=== PATIENT | male | born 1955 ===

== ENCOUNTER 2018-09-21 07:30 | Emergency (ER) | payer BC, OTHER ==
[~2018-09-21] VITALS: Ht 172.7 cm; Wt 88.7 kg
[2018-09-21] MEDS ORDERED: KETOROLAC 30 MG/1 ML ONE (07:58)
[2018-09-21] MEDS ORDERED: METHOCARBAMOL 500 MG TABLET ONE (07:58)
[2018-09-21] MEDS ORDERED: METHOCARBAMOL 750 MG TABLET PO ONE (08:00)
[2018-09-21] MEDS ORDERED: KETOROLAC 30 MG/1 ML IM ONE (08:00)
--- NOTE | 2018-09-21 08:10 | NUR ---
PT C/O NECK PAIN WITH DECREASED ROM, NUMBNESS, AND STIFFNESS. NO ACUTE SIGNS OF DISTRESS. PT MEDICATED PER EMAR FOR 9/10 NECK PAIN. DECLINED ROBAXIN DUE TO DRIVING SELF. PT AMB TO RADIOLOGY.
[2018-09-21 09:02] VITALS: BP 183/113
--- NOTE | 2018-09-21 09:11 | NUR ---
Patient given discharge instructions and they have confirmed that they understand the instructions. Patient ambulatory with steady gait. F/U with PMD regarding HTN, discussed with pt by provider.
== END 2018-09-21 09:33 | disposition home or self-care (01) ==
LOC: ED 08:52
DX: G89.29 Other chronic pain (principal); M54.2 Cervicalgia
CPT/HCPCS: 72050; 96372; 99283; J1885